=== PATIENT | female | born 1990 | race Two or more races ===

== ENCOUNTER 2022-04-07 09:48 | Emergency (ER) | payer MEDICARE, OTHER ==
[~2022-04-07] VITALS: Ht 170.2 cm; Wt 127.0 kg
[2022-04-07 09:53] VITALS: BP 169/89
== END 2022-04-07 10:20 ==
LOC: ER 10:15
DX: T74.21XA Adult sexual abuse, confirmed, initial encounter (principal); G40.909 Epilepsy, unspecified, not intractable, without status epilepticus; F99 Mental disorder, not otherwise specified; Z85.9 Personal history of malignant neoplasm, unspecified; Z88.8 Allergy status to other drugs, medicaments and biological substances
CPT/HCPCS: 99283